=== PATIENT | female | born 1955 | race Hispanic/Latino ===

== ENCOUNTER 2017-03-14 15:22 | Outpatient (CLI) | payer BC ==
--- NOTE | 2017-03-15 09:11 | Mammography Report ---
BILATERAL DIGITAL SCREENING MAMMOGRAM with CAD: 03/14/17 15:22:00 CLINICAL: Routine screening. COMPARISON:01/08/16 FINDINGS: There are scattered areas of fibroglandular density. No mass, architectural distortion or suspicious calcifications. IMPRESSION: No mammographic evidence of malignancy. BI-RADS CATEGORY: 2 -- Benign RECOMMENDATION: Routine mammographic screening in one year. COMMENT: Patient follow-up letters are generated by our [employer] application.
== END 2017-03-14 15:23 | disposition home or self-care (01) ==
LOC: SPVWC 15:22
PROVIDERS: ATTEND General Practice
DX: Z12.31 Encounter for screening mammogram for malignant neoplasm of breast (principal)
CPT/HCPCS: 77067; G0202

== ENCOUNTER 2018-02-19 06:18 | Day surgery (SDC) | payer BC ==
[2018-02-19 07:21] LABS: Basophils # (Auto) 0.1 K/mm3 (0.0-0.1); Eosinophils # (Auto) 0.1 K/mm3 (0.0-0.4); Eosinophils % (Auto) 1.4 % (0.0-4.3); Hemoglobin 12.8 gm/dl (10.1-14.3); Lymphocytes # (Auto) 3.5 K/mm3 (1.2-5.4); Mean Corpuscular HGB Conc 34 % (30-34); Mean Corpuscular Hemoglobin 29 pg (28-32); Mean Corpuscular Volume 86 fl (79-97); Monocytes % (Auto) 9.5 % (0.0-7.3); Platelet Count 229 K/mm3 (140-440); Red Blood Count 4.45 M/mm3 (3.65-5.03); Red Cell Distribution Width 12.9 % (13.2-15.2)
[2018-02-19 07:35] LABS: INR 0.87 (0.87-1.13)
[2018-02-19 07:36] LABS: Partial Thromboplastin Time 26.5 Sec. (24.2-36.6)
--- NOTE | 2018-02-19 09:56 | Short Stay Summary ---
Short Stay Documentation Date of service: 02/19/18 - History Principal diagnosis: right cervical adenopathy H&P: obtained from office - Allergies and Medications Current Medications: Allergies No Known Allergies Allergy (Unverified 02/19/18 06:19) Home Medications Medication Instructions Recorded Confirmed Last Taken Type HYDROcodone/APAP 7.5-325 [Tyler 1 tab PO Q6HR 02/19/18 02/19/18 02/18/18 History 7.5-325 mg TAB] Hydrochlorothiazide [HCTZ] 25 mg PO DAILY 02/19/18 02/19/18 02/19/18 05:45 History Losartan Potassium 100 mg PO DAILY 02/19/18 02/19/18 02/19/18 05:45 History metFORMIN [Glucophage] 500 mg PO BID 02/19/18 02/19/18 02/18/18 History - Physical exam General appearance: no acute distress HEENT: Other (palpable right cervical lymph nodes measuring up to 2.5cm) - Brief post op/procedure progress note Date of procedure: 02/19/18 Pre-op diagnosis: right cervical lymphadenopathy Post-op diagnosis: same Procedure: US guided FNA and biopsy Anesthesia: local Findings: right cervical LAD Surgeon: EARLINE FLORES Estimated blood loss: none Pathology: list (FNA x 2, 3 seperate 1.2cm 18G cores in RPMI and formalin) Specimen disposition: to lab Condition: stable - Disposition Condition at discharge: Good Disposition: [id number] TO HOME OR SELFCARE Short Stay Discharge Plan Follow up with: BEVERLEY BURNHAM MD [Primary Care Provider] - 7 Days
[2018-02-19 10:14] VITALS: BP 129/59
--- NOTE | 2018-02-19 10:32 | Ultrasound Report ---
ULTRASOUND BIOPSY LYMPH NODE HISTORY: Right cervical lymphadenopathy. DESCRIPTION OF PROCEDURE: Informed consent was obtained. Sterile technique was utilized. Skin anesthesia with 1% lidocaine. Using ultrasound guidance, 2 fine needle aspirations and three 18-gauge core biopsies were obtained from a right posterior cervical triangle lymph node measuring 2 cm in diameter. The samples were placed in formalin and RPI medium per pathologist's request. No complications. IMPRESSION: Successful fine needle aspiration and core biopsy of an enlarged right cervical lymph node.
== END 2018-02-19 10:15 | disposition home or self-care (01) ==
LOC: CATHLABREC 06:18 → EDSTATUS 08:30 → CATHLABREC 10:15
PROVIDERS: ATTEND Internal Medicine Hematology & Oncology
DX: L04.0 Acute lymphadenitis of face, head and neck (principal); Z79.01 Long term (current) use of anticoagulants; Z79.84 Long term (current) use of oral hypoglycemic drugs
CPT/HCPCS: 36415; 38505; 76942; 85025; 85610; 85730; 88172; 88173; 88184; 88185; 88305; 88312; 88333; 88341; 88342

== ENCOUNTER 2018-11-26 13:23 | Outpatient (CLI) | payer BC, OTHER | END 2018-11-26 13:24 | disposition home or self-care (01) | LOC: PF 13:23 | PROVIDERS: ATTEND Internal Medicine | DX: C85.90 Non-Hodgkin lymphoma, unspecified, unspecified site (principal); E11.65 Type 2 diabetes mellitus with hyperglycemia; I10 Essential (primary) hypertension; E66.9 Obesity, unspecified; M19.90 Unspecified osteoarthritis, unspecified site; Z90.710 Acquired absence of both cervix and uterus | CPT/HCPCS: 94010 ==